=== PATIENT | male | born 1965 | race Two or more races ===

== ENCOUNTER 2024-01-08 11:51 | Emergency (ER) | payer BC, OTHER ==
[~2024-01-08] VITALS: Ht 177.8 cm; Wt 95.5 kg
[2024-01-08] MEDS: ONDANSETRON ODT 4 MG TAB PO ONE (13:43)
[2024-01-08] MEDS: MORPHINE SULFATE INJ 2 MG/ml SYRG IM ONE (13:45)
[2024-01-08] MEDS: HYDROmorphone HCL 2 MG/ML VL/or syr IM ONE (15:00)
[2024-01-08] MEDS ORDERED: MELO7.5T7 PO (15:53)
[2024-01-08] MEDS ORDERED: LIDO5DIS21 TOP (15:53)
[2024-01-08] MEDS ORDERED: CYCL-839 PO (15:53)
[2024-01-08 16:04] VITALS: BP 157/95; PULSE 88; RESP 24; TEMP 98.2; O2SAT 95
== END 2024-01-08 16:19 | disposition home or self-care (01) ==
LOC: ER 11:51 → EDBD 11:51 → ER 16:10
DX: M54.59 Other low back pain (principal); Z79.899 Other long term (current) drug therapy; V63.9XXA Unspecified occupant of heavy transport vehicle injured in collision with car, pick-up truck or van in traffic accident, initial encounter; Y93.89 Activity, other specified; Y92.89 Other specified places as the place of occurrence of the external cause; Y99.8 Other external cause status
CPT/HCPCS: 72100; 96372; 99285; J1170; J2270; Q0162